=== PATIENT | male | born 1965 | race Caucasian/White ===

== ENCOUNTER 2020-10-18 18:39 | Emergency (ER) | payer OTHER ==
[2020-10-18 21:46] LABS: BASOPHIL 0 % (0-2); EOSINOPHIL 0 % (0-5); HCT 41.1 % (42.0-52.0); HGB 14.6 g/dl (13.2-18.0); LYMPHOCYTE 20.9 % (15-48); MCH 33.1 pg (25.0-31.0); MCHC 35.5 g/dL (32.0-36.0); MCV 93.2 fL (78.0-100.0); MONOCYTE 13.6 % (0-12); MPV 8.9 fL (6.0-9.5); NEUTROPHIL 65.1 % (41-80); NRBC 0; PLT 141 K/uL (150-400); RBC 4.41 M/uL (4.70-6.00); RDW 11.6 % (11.5-14.0); WBC 2.4 K/uL (4.0-10.5)
[2020-10-18 22:10] LABS: ALBUMIN 3.8 g/dL (3.4-5.0); BILIRUBIN - TOTAL 0.5 mg/dL (0.2-1.0); BUN/CREAT RATIO (CALC) 13.6 RATIO; CREATININE 1.1 mg/dL (0.67-1.17); GLOBULIN (CALCULATION) 2.9 g/dL; TOTAL PROTEIN 6.7 g/dL (6.4-8.2)
[2020-10-18 22:13] LABS: BILIRUBIN NEGATIVE (NEGATIVE); BLOOD NEGATIVE Ery/uL (NEGATIVE); CLARITY CLEAR (CLEAR); COLOR YELLOW (YELLOW); GLUCOSE (U) NORMAL (NORMAL); LEUKOCYTES NEGATIVE Leu/uL (NEGATIVE); NITRITE NEGATIVE (NEGATIVE); PROTEIN NEGATIVE (NEGATIVE); UROBILINOGEN 0.2 mg/dL (0.2-1.0); pH 5.5 (5.0-9.0)
== END 2020-10-18 23:00 | disposition home or self-care (01) ==
LOC: FER 18:39
PROVIDERS: Physician Assistant
DX: I95.1 Orthostatic hypotension (principal); U07.1 COVID-19; Z88.1 Allergy status to other antibiotic agents
CPT/HCPCS: 36415; 71045; 80053; 81001; 84484; 85025; 93005

== ENCOUNTER 2020-10-22 16:40 | Emergency (ER) | payer OTHER ==
[2020-10-22 19:19] LABS: BASOPHIL 0.2 % (0-2); EOSINOPHIL 0 % (0-5); HCT 40.5 % (42.0-52.0); HGB 14.7 g/dl (13.2-18.0); LYMPHOCYTE 11.6 % (15-48); MCH 32.7 pg (25.0-31.0); MCHC 36.3 g/dL (32.0-36.0); MONOCYTE 3.9 % (0-12); MPV 9.1 fL (6.0-9.5); NEUTROPHIL 83.5 % (41-80); NRBC 0; PLT 182 K/uL (150-400); RDW 11.7 % (11.5-14.0); WBC 6.2 K/uL (4.0-10.5)
[2020-10-22 19:41] LABS: LACTIC ACID 1.5 mmol/L (0.4-1.9)
[2020-10-22 20:02] LABS: ALBUMIN 3.4 g/dL (3.4-5.0); BILIRUBIN - TOTAL 0.8 mg/dL (0.2-1.0); BUN/CREAT RATIO (CALC) 11.5 RATIO; C-REACTIVE PROTEIN 11.1 mg/dL (<=0.90); CREATININE 0.87 mg/dL (0.67-1.17); GLOBULIN (CALCULATION) 3.6 g/dL; POTASSIUM 4.1 mmol/L (3.5-5.1)
[2020-10-22] MEDS ORDERED: HYDROCODONE-CH473 ML PO (22:44)
[2020-10-22] MEDS ORDERED: DEXAMETHASONE 2M2 MG PO (22:44)
[2020-10-22] MEDS ORDERED: VENTOLIN HFA IN18 GM INH (22:44)
[2020-10-22] MEDS ORDERED: ZPAK PO (22:44)
== END 2020-10-22 23:10 | disposition home or self-care (01) ==
LOC: FER 16:40
PROVIDERS: Emergency Medicine Emergency Medical Services
DX: U07.1 COVID-19 (principal); J12.82 Pneumonia due to coronavirus disease 2019; Z88.1 Allergy status to other antibiotic agents
CPT/HCPCS: 36415; 36600; 71045; 71275; 80053; 82803; 83605; 84484; 85025; 85379; 86140; 93005; 94640; 94664; J1885; Q9967

== ENCOUNTER 2020-10-24 10:11 | Emergency (ER) | payer OTHER ==
[~2020-10-24 10:11] MED LIST: DEXAMETHASONE 2M2 MG PO; HYDROCODONE-CH473 ML PO; VENTOLIN HFA IN18 GM INH; ZPAK PO
[2020-10-24 11:11] LABS: BASOPHIL 0.1 % (0-2); EOSINOPHIL 0 % (0-5); HCT 39.9 % (42.0-52.0); HGB 14.2 g/dl (13.2-18.0); LYMPHOCYTE 6.2 % (15-48); MCH 32.9 pg (25.0-31.0); MCHC 35.6 g/dL (32.0-36.0); MCV 92.6 fL (78.0-100.0); MONOCYTE 4.2 % (0-12); MPV 8.8 fL (6.0-9.5); NEUTROPHIL 88.3 % (41-80); NRBC 0; PLT 231 K/uL (150-400); RBC 4.31 M/uL (4.70-6.00); RDW 11.8 % (11.5-14.0); WBC 7.4 K/uL (4.0-10.5)
[2020-10-24 11:39] LABS: ALBUMIN 2.9 g/dL (3.4-5.0); BILIRUBIN - TOTAL 0.7 mg/dL (0.2-1.0); BUN/CREAT RATIO (CALC) 19.2 RATIO; CREATININE 0.73 mg/dL (0.67-1.17); GLOBULIN (CALCULATION) 3.2 g/dL; POTASSIUM 4.1 mmol/L (3.5-5.1); TOTAL PROTEIN 6.1 g/dL (6.4-8.2)
[2020-10-24 11:44] LABS: PRO-BNP 243 pg/mL (<125)
== END 2020-10-24 15:52 | disposition home or self-care (01) ==
LOC: FER 10:11
PROVIDERS: Emergency Medicine
DX: U07.1 COVID-19 (principal); J96.01 Acute respiratory failure with hypoxia; R94.5 Abnormal results of liver function studies; R91.8 Other nonspecific abnormal finding of lung field
CPT/HCPCS: 36415; 36600; 71045; 80053; 82803; 83605; 83880; 84145; 84484; 85025; 85379; 87040; 93005; J1100; J7030